=== PATIENT | female | born 1950 | race Caucasian/White ===

== ENCOUNTER 2017-09-09 19:24 | Inpatient (IN) | payer MEDICARE, OTHER ==
[~2017-09-09] VITALS: Ht 162.6 cm; Wt 97.7 kg
[2017-09-10] VITALS (7 sets, daily range): BP systolic 114–151; BP diastolic 55–76
[2017-09-10] MEDS ORDERED: naproxen 500mg tablet PO ONE (00:10)
[2017-09-10] MEDS ORDERED: traMADol 50MG tablet PO ONE (00:15)
[2017-09-10] MEDS ORDERED: normal saline 1000ml 1,000 ML IV ONE (01:14)
[2017-09-10 02:35] LABS: BASOPHILS % (AUTO) 0 % (0-1); EOSINOPHILS # (AUTO) 0.3 X10'3 (0-0.9); EOSINOPHILS % (AUTO) 1.8 % (0-6); HEMATOCRIT 37.9 % (35.0-45.0); HEMOGLOBIN 12.8 g/dl (12.0-16.0); LYMPHOCYTES # (AUTO) 1.4 X10'3 (1.1-4.8); LYMPHOCYTES % (AUTO) 7.3 % (21-51); MEAN CORPUSCULAR HEMOGLOBIN 29.3 PG (27.0-31.0); MEAN CORPUSCULAR HGB CONC 33.7 % (33.0-36.5); MEAN CORPUSCULAR VOLUME 86.9 FL (78-98); MEAN PLATELET VOLUME 6.5 FL (7.4-10.4); MONOCYTES % (AUTO) 5.5 % (2-12); NEUTROPHILS % (AUTO) 85.4 % (42-75); PLATELET COUNT 317 X10'3 (140-440); RED BLOOD COUNT 4.36 X10'6 (4.20-5.60); RED CELL DISTRIBUTION WIDTH 16.2 % (11.5-14.5); WHITE BLOOD COUNT 18.7 X10'3 (4.5-11.0)
[2017-09-10] MEDS ORDERED: potassium Cl 40MEQ/NS 500ml 500 ML IV PRN ×2 (02:45)
[2017-09-10] MEDS ORDERED: acetaminophen 325mg tablet PO PRN (02:45)
[2017-09-10] MEDS ORDERED: magnesium 2GM in 50ml NS 50 ML IV PRN (02:45)
[2017-09-10] MEDS ORDERED: magnesium Cl slow-release 64mg tablet PO PRN (02:45)
[2017-09-10] MEDS ORDERED: potassium Cl 20 mEq SR tablet PO PRN ×2 (02:45)
[2017-09-10] MEDS ORDERED: ondansetron/PF 4mg/2ml inj IV PRN (02:45)
[2017-09-10] MEDS ORDERED: mag hydrox/Alum hydrox/simeth 30ml oral suspension PO PRN (02:45)
[2017-09-10] MEDS ORDERED: magnesium 4gm in 100ml NS 100 ML IV PRN (02:45)
[2017-09-10 03:02] LABS: ALANINE AMINOTRANSFERASE 20 U/L (12-78); ALBUMIN 3.5 G/DL (3.4-5.0); ALKALINE PHOSPHATASE 107 IU/L (46-116); ANION GAP 10 (8-16); ASPARTATE AMINO TRANSFERASE 19 U/L (10-37); BILIRUBIN,TOTAL 0.3 MG/DL (0.1-1.0); BLOOD UREA NITROGEN 16 MG/DL (7-18); BUN/CREATININE RATIO 17.8 (6.6-38.0); CALCIUM 9.2 MG/DL (8.5-10.1); CHLORIDE 107 MMOL/L (99-107); GLUCOSE 145 MG/DL (70-104); POTASSIUM 3.5 MMOL/L (3.5-5.1); SODIUM 143 MMOL/L (135-145); TOTAL CARBON DIOXIDE 26.4 MMOL/L (24-32); eGFR 62 ML/MIN
[2017-09-10] MEDS: normal saline 1000ml 1,000 ML IV SCH ×3 (03:32→15:05)
[2017-09-10 04:45] LABS: ANISOCYTOSIS 1+; PLATELET ESTIMATE NORMAL; TOTAL CELLS COUNTED 100
[2017-09-10] MEDS: K and/or MAG REPLACEMENT MC SCH (06:54)
[2017-09-10 08:00] LABS: PARTIAL THROMBOPLASTIN TIME 26 SECONDS (22-32); PROTHROMBIN TIME 10.2 SECONDS (9.0-12.0)
[2017-09-10] MEDS: HYDROmorphone 1 mg/ml syringe IV PRN ×3 (08:09→23:54)
[2017-09-10] MEDS ORDERED: GABA-532 PO (10:18)
[2017-09-10] MEDS ORDERED: VALA100027 PO (10:20)
[2017-09-10] MEDS ORDERED: CELE-193 PO (10:20)
[2017-09-10] MEDS ORDERED: ASPI81TA52 PO (10:31)
[2017-09-10] MEDS ORDERED: ESOM40CA30 PO (10:32)
[2017-09-10] MEDS ORDERED: LORazepam 1 MG tablet PO PRN (12:05)
[2017-09-10] MEDS: pantoprazole 40 MG vial IV SCH ×2 (13:03→23:54)
[2017-09-10] MEDS: temazepam 15mg capsule PO PRN (21:06)
[2017-09-10 23:29] LABS: CLARITY,URINE CLOUDY (Clear); COLOR,URINE YELLOW (Yellow); GLUCOSE, URINE NEGATIVE (Neg); KETONES,URINE TRACE mg/dl (Neg); LEUKOCYTE ESTERASE ,URINE MODERATE (Neg); NITRITES, URINE POSITIVE (Neg); OCCULT BLOOD,URINE LARGE (Neg); PH,URINE 5.5 (4.8-8.0); PROTEIN,URINE NEGATIVE (Neg); UROBILINOGEN,URINE 0.2 E.U/dL (0.2-1.0)
[2017-09-10 23:42] LABS: UA COLLECTION TYPE FOLEY CATH
[2017-09-10 23:46] LABS: BACTERIA,URINE 3+ /HPF (Neg); RBC,URINE 20-50 /HPF (0-2); SQUAMOUS EPITHELIAL CELL,UR FEW /LPF (FEW); WBC,URINE 30-50 /HPF (0-4)
[2017-09-10 23:47] LABS: MUCUS STRANDS MODERATE /LPF (Neg)
[2017-09-11] VITALS (7 sets, daily range): BP systolic 92–114; BP diastolic 48–59
[2017-09-11] MEDS ORDERED: cefTRIAXone 1g/NS 100ml IVPB 100 ML IV SCH (01:07)
[2017-09-11] MEDS ORDERED: CefTRIAXone 2gm/NS 100ml IVPB 100 ML IV ONE (01:20)
[2017-09-11 02:06] LABS: BASOPHILS # (AUTO) 0.1 X10'3 (0-0.2); BASOPHILS % (AUTO) 0.4 % (0-1); EOSINOPHILS # (AUTO) 0.6 X10'3 (0-0.9); EOSINOPHILS % (AUTO) 2.7 % (0-6); HEMATOCRIT 37.5 % (35.0-45.0); HEMOGLOBIN 12.6 g/dl (12.0-16.0); LYMPHOCYTES # (AUTO) 1.6 X10'3 (1.1-4.8); LYMPHOCYTES % (AUTO) 7.6 % (21-51); MEAN CORPUSCULAR HEMOGLOBIN 29.3 PG (27.0-31.0); MEAN CORPUSCULAR HGB CONC 33.5 % (33.0-36.5); MEAN CORPUSCULAR VOLUME 87.4 FL (78-98); MEAN PLATELET VOLUME 6.5 FL (7.4-10.4); MONOCYTES % (AUTO) 4.7 % (2-12); NEUTROPHILS # (AUTO) 18.2 X10'3 (1.8-7.7); NEUTROPHILS % (AUTO) 84.6 % (42-75); PLATELET COUNT 307 X10'3 (140-440); RED BLOOD COUNT 4.29 X10'6 (4.20-5.60); RED CELL DISTRIBUTION WIDTH 16.7 % (11.5-14.5); WHITE BLOOD COUNT 21.6 X10'3 (4.5-11.0)
[2017-09-11 02:21] LABS: PARTIAL THROMBOPLASTIN TIME 27 SECONDS (22-32); PROTHROMBIN TIME 10.4 SECONDS (9.0-12.0)
[2017-09-11 02:22] LABS: ALANINE AMINOTRANSFERASE 19 U/L (12-78); ALBUMIN 2.9 G/DL (3.4-5.0); ALBUMIN/GLOBULIN RATIO 0.9 (1.1-1.5); ALKALINE PHOSPHATASE 98 IU/L (46-116); ANION GAP 8 (8-16); ASPARTATE AMINO TRANSFERASE 17 U/L (10-37); BILIRUBIN,TOTAL 0.7 MG/DL (0.1-1.0); BLOOD UREA NITROGEN 13 MG/DL (7-18); BUN/CREATININE RATIO 16.3 (6.6-38.0); CALCIUM 8.5 MG/DL (8.5-10.1); CHLORIDE 108 MMOL/L (99-107); GLUCOSE 124 MG/DL (70-104); MAGNESIUM 1.5 MG/DL (1.5-2.4); POTASSIUM 3.6 MMOL/L (3.5-5.1); SODIUM 143 MMOL/L (135-145); TOTAL CARBON DIOXIDE 27.5 MMOL/L (24-32); TOTAL PROTEIN 6.3 G/DL (6.4-8.2); eGFR 72 ML/MIN
[2017-09-11] MEDS: HYDROmorphone 1 mg/ml syringe IV PRN ×4 (04:02→19:52)
[2017-09-11 05:35] LABS: TOTAL CELLS COUNTED 100
[2017-09-11 05:41] LABS: ANISOCYTOSIS 1+; PLATELET ESTIMATE NORMAL
[2017-09-11] MEDS ORDERED: BUPIVAcaine 0.5% inj/PF 30 ML ONE (07:16)
[2017-09-11] MEDS ORDERED: pantoprazole 40mg Tablet.DR PO SCH (07:30)
[2017-09-11] MEDS: BUPIVAcaine 0.5% inj/PF 30 ml vial IJ ONE ×2 (07:54→10:37)
[2017-09-11] MEDS: gabapentin 300mg capsule PO SCH (08:00)
[2017-09-11] MEDS: valacyclovir 500mg tablet PO SCH (08:00)
[2017-09-11] MEDS: K and/or MAG REPLACEMENT MC SCH (08:00)
[2017-09-11] MEDS: pantoprazole 40 MG vial IV SCH ×3 (08:00→11:30)
[2017-09-11] MEDS ORDERED: fentaNYL/PF 50MCG/1 ML 2ML syringe ONE (08:03)
[2017-09-11] MEDS: normal saline 1000ml 1,000 ML IV SCH (08:43)
[2017-09-11] MEDS ORDERED: midazolam 2 mg/2 ml injection ONE (08:43)
[2017-09-11] MEDS ORDERED: iohexol 350MG/ML 100ml bottle IV ONE (09:06)
[2017-09-11] MEDS: azithromycin/NS 500mg/250ml 250 ML IV SCH (11:22)
[2017-09-11] MEDS: lactobacillus rhamnosus 10,000 MMU CELLS/CAPSULE PO SCH (17:41)
[2017-09-11] MEDS: cefTRIAXone 1g/NS 100ml IVPB 100 ML IV SCH (19:53)
[2017-09-11] MEDS: temazepam 15mg capsule PO PRN (21:59)
[2017-09-12] MEDS ORDERED: heparin, porcine 5000 units/ml vial SQ SCH ×2 (00:35→15:23)
[2017-09-12] MEDS: HYDROmorphone 1 mg/ml syringe IV PRN ×3 (00:48→11:41)
[2017-09-12 01:02] VITALS: BP 96/59
[2017-09-12 07:15] VITALS: BP 108/58
[2017-09-12] MEDS: lactobacillus rhamnosus 10,000 MMU CELLS/CAPSULE PO SCH ×2 (07:30→17:08)
[2017-09-12] MEDS: valacyclovir 500mg tablet PO SCH (08:00)
[2017-09-12] MEDS: gabapentin 300mg capsule PO SCH (08:00)
[2017-09-12] MEDS: K and/or MAG REPLACEMENT MC SCH (08:00)
[2017-09-12] MEDS: pantoprazole 40 MG vial IV SCH ×2 (08:00)
[2017-09-12] MEDS: cefTRIAXone 1g/NS 100ml IVPB 100 ML IV SCH (08:25)
[2017-09-12 08:40] LABS: ALANINE AMINOTRANSFERASE 24 U/L (12-78); ALBUMIN 2.5 G/DL (3.4-5.0); ALBUMIN/GLOBULIN RATIO 0.7 (1.1-1.5); ALKALINE PHOSPHATASE 85 IU/L (46-116); ANION GAP 10 (8-16); ASPARTATE AMINO TRANSFERASE 29 U/L (10-37); BILIRUBIN,TOTAL 0.5 MG/DL (0.1-1.0); BLOOD UREA NITROGEN 15 MG/DL (7-18); CALCIUM 8.3 MG/DL (8.5-10.1); CHLORIDE 107 MMOL/L (99-107); GLUCOSE 111 MG/DL (70-104); MAGNESIUM 1.7 MG/DL (1.5-2.4); POTASSIUM 3.7 MMOL/L (3.5-5.1); SODIUM 142 MMOL/L (135-145); TOTAL CARBON DIOXIDE 25.2 MMOL/L (24-32); eGFR 55 ML/MIN
[2017-09-12 09:08] LABS: PARTIAL THROMBOPLASTIN TIME 31 SECONDS (22-32); PROTHROMBIN TIME 10.7 SECONDS (9.0-12.0)
[2017-09-12] MEDS: azithromycin/NS 500mg/250ml 250 ML IV SCH (09:09)
[2017-09-12 09:11] LABS: BASOPHILS # (AUTO) 0.1 X10'3 (0-0.2); BASOPHILS % (AUTO) 0.4 % (0-1); EOSINOPHILS # (AUTO) 0.7 X10'3 (0-0.9); EOSINOPHILS % (AUTO) 4.6 % (0-6); HEMATOCRIT 32.8 % (35.0-45.0); HEMOGLOBIN 10.6 g/dl (12.0-16.0); LYMPHOCYTES # (AUTO) 1.8 X10'3 (1.1-4.8); LYMPHOCYTES % (AUTO) 12.8 % (21-51); MEAN CORPUSCULAR HEMOGLOBIN 28.7 PG (27.0-31.0); MEAN CORPUSCULAR HGB CONC 32.3 % (33.0-36.5); MEAN CORPUSCULAR VOLUME 88.8 FL (78-98); MONOCYTES # (AUTO) 1.2 X10'3 (0-0.9); MONOCYTES % (AUTO) 8.7 % (2-12); NEUTROPHILS # (AUTO) 10.6 X10'3 (1.8-7.7); NEUTROPHILS % (AUTO) 73.5 % (42-75); PLATELET COUNT 258 X10'3 (140-440); RED CELL DISTRIBUTION WIDTH 16.2 % (11.5-14.5); WHITE BLOOD COUNT 14.4 X10'3 (4.5-11.0)
[2017-09-12 10:00] VITALS: BP 111/61
[2017-09-12] MEDS: normal saline 1000ml 1,000 ML IV SCH ×3 (11:20→21:20)
[2017-09-12] MEDS: morphine 2 MG/ML inj. syringe IV PRN ×2 (17:09→21:09)
[2017-09-12 18:00] VITALS: BP 109/64
[2017-09-12 22:00] VITALS: BP 129/83
[2017-09-13] MEDS: morphine 2 MG/ML inj. syringe IV PRN ×2 (00:44→04:43)
[2017-09-13] MEDS: normal saline 1000ml 1,000 ML IV SCH ×3 (02:26→17:44)
[2017-09-13 05:59] LABS: BASOPHILS % (AUTO) 0.1 % (0-1); EOSINOPHILS # (AUTO) 0.9 X10'3 (0-0.9); EOSINOPHILS % (AUTO) 7.3 % (0-6); HEMATOCRIT 29.4 % (35.0-45.0); HEMOGLOBIN 9.9 g/dl (12.0-16.0); LYMPHOCYTES % (AUTO) 15.9 % (21-51); MEAN CORPUSCULAR HEMOGLOBIN 29.5 PG (27.0-31.0); MEAN CORPUSCULAR HGB CONC 33.9 % (33.0-36.5); MEAN PLATELET VOLUME 7.2 FL (7.4-10.4); MONOCYTES # (AUTO) 1.2 X10'3 (0-0.9); MONOCYTES % (AUTO) 9.7 % (2-12); NEUTROPHILS # (AUTO) 8.2 X10'3 (1.8-7.7); PLATELET COUNT 248 X10'3 (140-440); RED BLOOD COUNT 3.37 X10'6 (4.20-5.60); RED CELL DISTRIBUTION WIDTH 16.9 % (11.5-14.5); WHITE BLOOD COUNT 12.3 X10'3 (4.5-11.0)
[2017-09-13 06:10] LABS: PARTIAL THROMBOPLASTIN TIME 32 SECONDS (22-32); PROTHROMBIN TIME 10.6 SECONDS (9.0-12.0)
[2017-09-13 06:33] LABS: ALANINE AMINOTRANSFERASE 22 U/L (12-78); ALBUMIN 2.3 G/DL (3.4-5.0); ALBUMIN/GLOBULIN RATIO 0.6 (1.1-1.5); ALKALINE PHOSPHATASE 78 IU/L (46-116); ANION GAP 6 (8-16); ASPARTATE AMINO TRANSFERASE 23 U/L (10-37); BILIRUBIN,TOTAL 0.6 MG/DL (0.1-1.0); BLOOD UREA NITROGEN 14 MG/DL (7-18); CALCIUM 8.5 MG/DL (8.5-10.1); CHLORIDE 109 MMOL/L (99-107); GLUCOSE 105 MG/DL (70-104); MAGNESIUM 1.6 MG/DL (1.5-2.4); POTASSIUM 3.8 MMOL/L (3.5-5.1); SODIUM 144 MMOL/L (135-145); TOTAL CARBON DIOXIDE 28.6 MMOL/L (24-32); TOTAL PROTEIN 5.9 G/DL (6.4-8.2); eGFR 55 ML/MIN
[2017-09-13 06:55] VITALS: BP 115/68
[2017-09-13] MEDS: K and/or MAG REPLACEMENT MC SCH (08:00)
[2017-09-13] MEDS: pantoprazole 40 MG vial IV SCH (08:14)
[2017-09-13] MEDS: lactobacillus rhamnosus 10,000 MMU CELLS/CAPSULE PO SCH ×2 (08:14→17:29)
[2017-09-13] MEDS: cefTRIAXone 1g/NS 100ml IVPB 100 ML IV SCH (08:15)
[2017-09-13] MEDS: valacyclovir 500mg tablet PO SCH (08:15)
[2017-09-13] MEDS: gabapentin 300mg capsule PO SCH (08:15)
[2017-09-13 10:00] VITALS: BP 105/62
[2017-09-13] MEDS: HYDROcodone/acetaminophen 10/325mg tab PO PRN ×3 (10:01→21:38)
[2017-09-13] MEDS: azithromycin/NS 500mg/250ml 250 ML IV SCH (10:02)
[2017-09-13] MEDS: magnesium hydroxide 30ml (MOM) UD suspension PO PRN (17:30)
[2017-09-13 18:26] VITALS: BP 127/54
[2017-09-13] MEDS: temazepam 15mg capsule PO PRN (21:37)
[2017-09-13 22:14] VITALS: BP 131/81
[2017-09-14] VITALS (21 sets, daily range): BP systolic 95–146; BP diastolic 54–88
[2017-09-14] MEDS: HYDROcodone/acetaminophen 10/325mg tab PO PRN ×4 (02:22→22:34)
[2017-09-14] MEDS: normal saline 1000ml 1,000 ML IV SCH ×4 (03:20→22:35)
[2017-09-14] MEDS: morphine 2 MG/ML inj. syringe IV PRN (04:05)
[2017-09-14 05:58] LABS: BASOPHILS % (AUTO) 0.4 % (0-1); EOSINOPHILS # (AUTO) 1.2 X10'3 (0-0.9); EOSINOPHILS % (AUTO) 10.6 % (0-6); HEMATOCRIT 30.4 % (35.0-45.0); HEMOGLOBIN 10.2 g/dl (12.0-16.0); LYMPHOCYTES # (AUTO) 2.1 X10'3 (1.1-4.8); LYMPHOCYTES % (AUTO) 18.8 % (21-51); MEAN CORPUSCULAR HEMOGLOBIN 29.3 PG (27.0-31.0); MEAN CORPUSCULAR HGB CONC 33.6 % (33.0-36.5); MEAN CORPUSCULAR VOLUME 87.3 FL (78-98); MEAN PLATELET VOLUME 7.1 FL (7.4-10.4); MONOCYTES # (AUTO) 1.2 X10'3 (0-0.9); MONOCYTES % (AUTO) 10.4 % (2-12); NEUTROPHILS # (AUTO) 6.8 X10'3 (1.8-7.7); NEUTROPHILS % (AUTO) 59.8 % (42-75); PLATELET COUNT 312 X10'3 (140-440); RED BLOOD COUNT 3.48 X10'6 (4.20-5.60); RED CELL DISTRIBUTION WIDTH 16.1 % (11.5-14.5); WHITE BLOOD COUNT 11.4 X10'3 (4.5-11.0)
[2017-09-14 06:25] LABS: PROTHROMBIN TIME 10.3 SECONDS (9.0-12.0)
[2017-09-14 06:28] LABS: ALANINE AMINOTRANSFERASE 21 U/L (12-78); ALBUMIN 2.2 G/DL (3.4-5.0); ALBUMIN/GLOBULIN RATIO 0.6 (1.1-1.5); ALKALINE PHOSPHATASE 82 IU/L (46-116); ANION GAP 5 (8-16); ASPARTATE AMINO TRANSFERASE 21 U/L (10-37); BILIRUBIN,TOTAL 0.5 MG/DL (0.1-1.0); BLOOD UREA NITROGEN 15 MG/DL (7-18); BUN/CREATININE RATIO 16.7 (6.6-38.0); CALCIUM 8.8 MG/DL (8.5-10.1); CHLORIDE 108 MMOL/L (99-107); GLUCOSE 101 MG/DL (70-104); POTASSIUM 4.1 MMOL/L (3.5-5.1); SODIUM 144 MMOL/L (135-145); TOTAL CARBON DIOXIDE 30.6 MMOL/L (24-32); TOTAL PROTEIN 5.9 G/DL (6.4-8.2); eGFR 62 ML/MIN
[2017-09-14] MEDS ORDERED: ceFAZolin 1000mg inj ONE (06:57)
[2017-09-14] MEDS ORDERED: BUPIVAcaine 0.5% inj/PF 0 ML ONE (06:57)
[2017-09-14] MEDS: azithromycin/NS 500mg/250ml 250 ML IV SCH (07:06)
[2017-09-14] MEDS: cefTRIAXone 1g/NS 100ml IVPB 100 ML IV SCH (07:06)
[2017-09-14] MEDS ORDERED: fentaNYL/PF 50MCG/1 ML 2ML syringe ONE (07:09)
[2017-09-14] MEDS ORDERED: midazolam 2 mg/2 ml injection ONE ×3 (07:09→07:10)
[2017-09-14] MEDS ORDERED: ringers solution, lacted 1,000 ML IV SCH (07:15)
[2017-09-14] MEDS ORDERED: ondansetron/PF 4mg/2ml inj IV PRN (07:15)
[2017-09-14] MEDS ORDERED: labetalol 5mg/ml 20ml inj. IV PRN (07:15)
[2017-09-14] MEDS ORDERED: morphine 2 MG/ML inj. syringe IV PRN ×2 (07:15)
[2017-09-14] MEDS ORDERED: hydrALAZINE 20mg/ml inj. IV PRN (07:15)
[2017-09-14] MEDS ORDERED: meperidine/PF 25mg/ml syringe IV PRN ×2 (07:15)
[2017-09-14] MEDS: K and/or MAG REPLACEMENT MC SCH (08:00)
[2017-09-14] MEDS: valacyclovir 500mg tablet PO SCH (11:27)
[2017-09-14] MEDS: lactobacillus rhamnosus 10,000 MMU CELLS/CAPSULE PO SCH ×2 (11:27→17:52)
[2017-09-14] MEDS: gabapentin 300mg capsule PO SCH (11:28)
[2017-09-14] MEDS: pantoprazole 40mg Tablet.DR PO SCH (11:28)
[2017-09-14] MEDS ORDERED: CefTRIAXone 1 gm/50ml D5W ADV 50 ML IV SCH (12:14)
[2017-09-14] MEDS: fluticasone nasal spray 16GM bottle NS SCH (15:35)
[2017-09-14] MEDS: magnesium hydroxide 30ml (MOM) UD suspension PO PRN (20:26)
[2017-09-14] MEDS: celeCOXIB 100mg capsule PO SCH (20:27)
[2017-09-14] MEDS: temazepam 15mg capsule PO PRN (22:33)
[2017-09-15 02:00] VITALS: BP 134/63
[2017-09-15] MEDS: HYDROcodone/acetaminophen 10/325mg tab PO PRN ×4 (05:38→20:44)
[2017-09-15 06:00] VITALS: BP 111/78
[2017-09-15 06:12] LABS: BASOPHILS % (AUTO) 0.2 % (0-1); EOSINOPHILS # (AUTO) 1.1 X10'3 (0-0.9); HEMATOCRIT 30.7 % (35.0-45.0); HEMOGLOBIN 10.2 g/dl (12.0-16.0); LYMPHOCYTES # (AUTO) 1.8 X10'3 (1.1-4.8); LYMPHOCYTES % (AUTO) 14.9 % (21-51); MEAN CORPUSCULAR HEMOGLOBIN 29.3 PG (27.0-31.0); MEAN CORPUSCULAR HGB CONC 33.3 % (33.0-36.5); MEAN CORPUSCULAR VOLUME 87.9 FL (78-98); MONOCYTES # (AUTO) 1.1 X10'3 (0-0.9); MONOCYTES % (AUTO) 9.4 % (2-12); NEUTROPHILS % (AUTO) 66.5 % (42-75); PLATELET COUNT 354 X10'3 (140-440); RED BLOOD COUNT 3.49 X10'6 (4.20-5.60); RED CELL DISTRIBUTION WIDTH 16.7 % (11.5-14.5)
[2017-09-15 06:27] LABS: PROTHROMBIN TIME 10.5 SECONDS (9.0-12.0)
[2017-09-15 06:36] LABS: ALANINE AMINOTRANSFERASE 15 U/L (12-78); ALBUMIN 2.2 G/DL (3.4-5.0); ALBUMIN/GLOBULIN RATIO 0.6 (1.1-1.5); ALKALINE PHOSPHATASE 87 IU/L (46-116); ANION GAP 6 (8-16); ASPARTATE AMINO TRANSFERASE 18 U/L (10-37); BILIRUBIN,TOTAL 0.4 MG/DL (0.1-1.0); BLOOD UREA NITROGEN 11 MG/DL (7-18); BUN/CREATININE RATIO 15.5 (6.6-38.0); CALCIUM 8.9 MG/DL (8.5-10.1); CHLORIDE 108 MMOL/L (99-107); CREATININE 0.71 MG/DL (0.40-0.90); GLUCOSE 102 MG/DL (70-104); POTASSIUM 4.4 MMOL/L (3.5-5.1); SODIUM 146 MMOL/L (135-145); TOTAL CARBON DIOXIDE 31.8 MMOL/L (24-32); eGFR 82 ML/MIN
[2017-09-15] MEDS: K and/or MAG REPLACEMENT MC SCH (08:00)
[2017-09-15] MEDS: lactobacillus rhamnosus 10,000 MMU CELLS/CAPSULE PO SCH ×2 (08:28→16:41)
[2017-09-15] MEDS: valacyclovir 500mg tablet PO SCH (08:29)
[2017-09-15] MEDS: celeCOXIB 100mg capsule PO SCH ×2 (08:29→20:45)
[2017-09-15] MEDS: gabapentin 300mg capsule PO SCH (08:29)
[2017-09-15] MEDS: pantoprazole 40mg Tablet.DR PO SCH (08:29)
[2017-09-15] MEDS: fluticasone nasal spray 16GM bottle NS SCH (08:32)
[2017-09-15] MEDS: normal saline 1000ml 1,000 ML IV SCH ×2 (08:35→20:31)
[2017-09-15] MEDS: azithromycin/NS 500mg/250ml 250 ML IV SCH (09:31)
[2017-09-15] MEDS ORDERED: aspirin 325mg tablet, delayed-release (Ecotrin) PO ONE (09:35)
[2017-09-15 10:00] VITALS: BP 100/71
[2017-09-15 18:00] VITALS: BP 118/73
[2017-09-15 22:00] VITALS: BP 124/68
[2017-09-15] MEDS: temazepam 15mg capsule PO PRN (22:05)
[2017-09-16] MEDS: HYDROcodone/acetaminophen 10/325mg tab PO PRN ×2 (02:11→09:55)
[2017-09-16 06:00] VITALS: BP 117/68
[2017-09-16] MEDS: K and/or MAG REPLACEMENT MC SCH (08:00)
[2017-09-16] MEDS ORDERED: aspirin 325mg tablet, delayed-release (Ecotrin) PO SCH (08:00)
[2017-09-16] MEDS: valacyclovir 500mg tablet PO SCH (09:55)
[2017-09-16] MEDS: pantoprazole 40mg Tablet.DR PO SCH (09:55)
[2017-09-16] MEDS: celeCOXIB 100mg capsule PO SCH (09:56)
[2017-09-16] MEDS: gabapentin 300mg capsule PO SCH (09:56)
[2017-09-16] MEDS: fluticasone nasal spray 16GM bottle NS SCH (09:57)
[2017-09-16] MEDS: azithromycin/NS 500mg/250ml 250 ML IV SCH (09:57)
[2017-09-16 10:00] VITALS: BP 140/74
[2017-09-16] MEDS: lactobacillus rhamnosus 10,000 MMU CELLS/CAPSULE PO SCH (10:04)
== END 2017-09-16 13:18 | DRG 480 ==
LOC: ER 19:24 → ED HOLD 09-10 02:43 → SUR 3N 09-10 06:00 → ORTHO 4S 09-10 15:28
PROVIDERS: ADMIT Internal Medicine; ATTEND Internal Medicine
PROC: B3201ZZ Computerized Tomography (CT Scan) of Thoracic Aorta using Low Osmolar Contrast (ICD-10-PCS; 2017-09-11)
PROC: 0QS734Z Reposition Left Upper Femur with Internal Fixation Device, Percutaneous Approach (ICD-10-PCS; principal; 2017-09-14 07:34)
DX: S72.002A Fracture of unspecified part of neck of left femur, initial encounter for closed fracture (principal); J18.9 Pneumonia, unspecified organism; I95.9 Hypotension, unspecified; E66.01 Morbid (severe) obesity due to excess calories; B02.9 Zoster without complications; Z68.37 Body mass index [BMI] 37.0-37.9, adult; N39.0 Urinary tract infection, site not specified; R09.02 Hypoxemia; B96.20 Unspecified Escherichia coli [E. coli] as the cause of diseases classified elsewhere; I51.7 Cardiomegaly; W01.0XXA Fall on same level from slipping, tripping and stumbling without subsequent striking against object, initial encounter; K21.9 Gastro-esophageal reflux disease without esophagitis; M19.90 Unspecified osteoarthritis, unspecified site; M81.0 Age-related osteoporosis without current pathological fracture; F17.210 Nicotine dependence, cigarettes, uncomplicated; Z90.49 Acquired absence of other specified parts of digestive tract; R00.1 Bradycardia, unspecified; Y93.89 Activity, other specified; Y92.89 Other specified places as the place of occurrence of the external cause; Y99.8 Other external cause status
CPT/HCPCS: 36415; 71045; 71046; 71275; 72192; 73502; 73610; 73700; 76000; 80053; 81001; 83605; 83735; 85025; 85610; 85730; 87040; 87070; 87077; 87088; 87186; 93005; 96360; 97110; 97116; 97162; 97530; 99285; A4315; A6257; A6449; A7000; C1713; C9113; J0456; J0690; J0696; J1170; J1644; J2250; J2270; J2405; J3010; J3490; J7030; J7120; Q9967